=== PATIENT | female | born 1995 | race Caucasian/White ===

== ENCOUNTER 2017-09-16 15:09 | Inpatient (IN) | payer OTHER ==
[~2017-09-16] VITALS: Ht 177.8 cm; Wt 61.3 kg
[~2017-09-16 15:09] MED LIST: ATARAX,VISTARIL50 MG PO; FLEXERIL10 MG PO; KEFLEX500 MG PO; NAPROSYN500 MG PO; ZOLOFT25 MG PO
[2017-09-16 17:23] LABS: BASOPHIL (%) 0.1 % (0-1); EOSINOPHIL (%) 0.8 % (0-5); EOSINOPHIL COUNT 0.1 K/uL (0-0.3); HEMATOCRIT 42.1 % (36.0-46.0); HEMOGLOBIN 14.4 G/DL (11.9-15.5); IMMATURE GRANULOCYTE (%) 0.5 % (0.0-0.7); LYMPHOCYTE (%) 19.9 % (15-42); LYMPHOCYTE COUNT 1.7 K/uL (1.0-2.8); MCHC 34.2 G/DL (30.0-36.0); MCV 90.5 FL (83-99); MONOCYTE COUNT 0.7 K/uL (0-0.8); NEUTROPHIL (%) 70.7 % (45-76); NEUTROPHIL COUNT 5.9 K/uL (1.8-6.4); PLATELET COUNT 271 K/uL (156-360); RBC DIS.WIDTH-CV 12.3 % (11.8-14.6); RBC DIS.WIDTH-SD 40.5 % (39-53); RED BLOOD COUNT 4.65 M/uL (3.80-5.20); WHITE BLOOD COUNT 8.3 K/uL (4.1-10.2)
[2017-09-16 17:32] LABS: CHLORIDE 103 mEq/L (99-109); SODIUM 139 mEq/L (136-147)
[2017-09-16 17:34] LABS: GLUCOSE 86 mg/dL (70-99)
[2017-09-16 17:37] LABS: CREATININE 0.7 mg/dL (0.6-1.3); GFR ESTIMATE (CALCULATED) > 59 mL/min/; SERUM ETHYL ALCOHOL < 10 mg/dL
[2017-09-16 17:38] LABS: UREA NITROGEN (BUN) 8 mg/dL (9-23)
[2017-09-16 17:50] LABS: QUANTITATIVE HCG < 4.0 MIU/ML
[2017-09-16 18:04] LABS: AMPHETAMINE NEGATIVE (500 ng/mL); BARBITURATES NEGATIVE (200 ng/mL); BENZODIAZEPINES NEGATIVE (150 ng/mL); BUPRENORPHINE NEGATIVE (10 ng/mL); COCAINE NEGATIVE (150 ng/mL); METHADONE NEGATIVE (200 ng/mL); METHAMPHETAMINE NEGATIVE (500 ng/mL); OPIATES (MORPHINE) NEGATIVE (100 ng/mL); OXYCODONE NEGATIVE (100 ng/mL); PHENCYCLIDINE NEGATIVE (25 ng/mL); PROPOXYPHENE NEGATIVE (300 ng/mL); THC CANNABINOIDS PRESUMPTIVE POSITIVE (50 ng/mL); TRICYCLIC ANTIDEPRESSANTS NEGATIVE (300 ng/mL)
[2017-09-16] MEDS ORDERED: EFFEXOR XR150 MG PO (19:05)
[2017-09-16] MEDS ORDERED: PROAIR HFA8.5 GM IH (19:06)
[2017-09-16] MEDS ORDERED: KLONOPIN0.5 M1 PO (19:06)
[2017-09-16] MEDS ORDERED: ONE DAILY1 EAC3 PO (19:06)
[2017-09-16] MEDS ORDERED: MUCINEX FAST-M1 EAC8 PO (19:07)
[2017-09-16] MEDS ORDERED: [UNRECOGNIZED DRUG - OTHER] TP (19:07)
[2017-09-16 19:58] VITALS: BP 121/83
[2017-09-16 20:05] VITALS: BP 121/83
[2017-09-17 08:05] VITALS: BP 121/79
[2017-09-17 15:34] VITALS: BP 116/72
[2017-09-18 07:58] VITALS: BP 118/65
[2017-09-18 16:24] VITALS: BP 142/92
[2017-09-19 07:57] VITALS: BP 131/81
[2017-09-19 15:47] VITALS: BP 145/81
[2017-09-19 18:19] VITALS: BP 112/66
[2017-09-20 08:03] VITALS: BP 119/76
[2017-09-20] MEDS ORDERED: EFFEXOR XR75 MG PO (09:36)
[2017-09-20] MEDS ORDERED: KLONOPIN0.5 M1 PO (09:36)
[2017-09-20] MEDS ORDERED: BUSPAR10 MG PO (09:36)
== END 2017-09-20 13:17 | disposition home or self-care (01) | DRG 885 ==
LOC: EME 15:09 → 1WEST 18:48 → EDOF 18:48 → ENRESERV 19:00 → 1WEST 19:46
PROVIDERS: Emergency Medicine
DX: F33.2 Major depressive disorder, recurrent severe without psychotic features (principal); R45.851 Suicidal ideations; F41.9 Anxiety disorder, unspecified; F60.3 Borderline personality disorder; F12.10 Cannabis abuse, uncomplicated; F10.20 Alcohol dependence, uncomplicated; Z91.5 Personal history of self-harm
CPT/HCPCS: 80048; 84702; 84999; 85025; 90839; 94640; 94640 76; 97150 GO; 97165 GO; 99202; 99281; 99284; G0480; Q0177

== ENCOUNTER 2017-10-23 01:12 | Emergency (ER) | payer OTHER ==
[~2017-10-23] VITALS: Ht 177.8 cm; Wt 61.8 kg
[~2017-10-23 01:12] MED LIST changes: +BUSPAR10 MG PO; +EFFEXOR XR150 MG PO; +EFFEXOR XR75 MG PO; +KLONOPIN0.5 M1 PO; +MUCINEX FAST-M1 EAC8 PO; +ONE DAILY1 EAC3 PO; +PROAIR HFA8.5 GM IH; +[UNRECOGNIZED DRUG - OTHER] TP
[2017-10-23 02:14] LABS: APPEARANCE CLEAR ((CLEAR)); BILIRUBIN NEGATIVE; BLOOD NEGATIVE; COLOR STRAW ((YELLOW)); GLUCOSE (STRIP) NEGATIVE; KETONES NEGATIVE; LEUKOCYTES NEGATIVE; NITRITE NEGATIVE; PROTEIN (STRIP) NEGATIVE; SPECIFIC GRAVITY 1.002 (1.000-1.030); UROBILINOGEN 0.2 MG/DL (0.2-1.0)
[2017-10-23 02:16] LABS: HEMATOCRIT 35.8 % (36.0-46.0); HEMOGLOBIN 12.5 G/DL (11.9-15.5); MCH 31.6 PG (29.0-34.0); MCHC 34.9 G/DL (30.0-36.0); MCV 90.4 FL (83-99); PLATELET COUNT 205 K/uL (156-360); RBC DIS.WIDTH-CV 12.1 % (11.8-14.6); RBC DIS.WIDTH-SD 39.9 % (39-53); RED BLOOD COUNT 3.96 M/uL (3.80-5.20); WHITE BLOOD COUNT 4.7 K/uL (4.1-10.2)
[2017-10-23 02:23] LABS: AMPHETAMINE NEGATIVE (500 ng/mL); BARBITURATES NEGATIVE (200 ng/mL); BENZODIAZEPINES NEGATIVE (150 ng/mL); BUPRENORPHINE NEGATIVE (10 ng/mL); COCAINE NEGATIVE (150 ng/mL); METHADONE NEGATIVE (200 ng/mL); METHAMPHETAMINE NEGATIVE (500 ng/mL); OPIATES (MORPHINE) NEGATIVE (100 ng/mL); OXYCODONE NEGATIVE (100 ng/mL); PHENCYCLIDINE NEGATIVE (25 ng/mL); PROPOXYPHENE NEGATIVE (300 ng/mL); THC CANNABINOIDS PRESUMPTIVE POSITIVE (50 ng/mL); TRICYCLIC ANTIDEPRESSANTS NEGATIVE (300 ng/mL)
[2017-10-23 02:32] LABS: ALBUMIN 4.1 g/dL (3.2-4.8); CHLORIDE 113 mEq/L (99-109); POTASSIUM 3.2 mEq/L (3.7-5.4); SODIUM 146 mEq/L (136-147)
[2017-10-23 02:34] LABS: GLUCOSE 86 mg/dL (70-99); TOTAL PROTEIN 6.4 g/dL (6.4-8.3)
[2017-10-23 02:36] LABS: TOTAL BILIRUBIN 0.3 mg/dL (0.0-1.0)
[2017-10-23 02:37] LABS: SERUM ETHYL ALCOHOL 32 mg/dL
[2017-10-23 02:38] LABS: CREATININE 0.7 mg/dL (0.6-1.3); GFR ESTIMATE (CALCULATED) > 59 mL/min/
[2017-10-23 02:39] LABS: ALKALINE PHOSPHATASE 57 IU/L (3-129); AST (GOT) 16 IU/L (2-34)
[2017-10-23 02:40] LABS: UREA NITROGEN (BUN) 6 mg/dL (9-23)
[2017-10-23 02:41] LABS: SALICYLATE < 5.0 MG/DL (15-30)
[2017-10-23 02:42] LABS: ACETAMINOPHEN (TYLENOL) < 10 mcg/mL (10-30); ALT (GPT) 10 IU/L (3-49)
[2017-10-23 03:21] LABS: QUANTITATIVE HCG < 4.0 MIU/ML
[2017-10-23 20:58] VITALS: BP 106/68
== END 2017-10-23 20:59 ==
LOC: EME → EDBD 01:12 → EME 20:59
PROVIDERS: Emergency Medicine
DX: T42.4X1A Poisoning by benzodiazepines, accidental (unintentional), initial encounter (principal); T43.591A Poisoning by other antipsychotics and neuroleptics, accidental (unintentional), initial encounter; F33.2 Major depressive disorder, recurrent severe without psychotic features; T43.291A Poisoning by other antidepressants, accidental (unintentional), initial encounter; R45.851 Suicidal ideations; F60.3 Borderline personality disorder; F10.20 Alcohol dependence, uncomplicated; F12.90 Cannabis use, unspecified, uncomplicated; F41.9 Anxiety disorder, unspecified; J45.909 Unspecified asthma, uncomplicated; Z91.5 Personal history of self-harm; Z98.890 Other specified postprocedural states; Z91.048 Other nonmedicinal substance allergy status; Y90.1 Blood alcohol level of 20-39 mg/100 ml
CPT/HCPCS: 71045; 80053; 81003; 84702; 84999; 85027; 90837; 93005; 99281; 99285; G0480; J7030

== ENCOUNTER 2017-11-22 21:03 | Emergency (ER) | payer OTHER ==
[~2017-11-22] VITALS: Ht 177.8 cm; Wt 63.6 kg
[2017-11-22 21:52] LABS: HEMATOCRIT 38.2 % (36.0-46.0); HEMOGLOBIN 13.4 G/DL (11.9-15.5); MCH 31.4 PG (29.0-34.0); MCHC 35.1 G/DL (30.0-36.0); MCV 89.5 FL (83-99); PLATELET COUNT 232 K/uL (156-360); RBC DIS.WIDTH-CV 11.9 % (11.8-14.6); RBC DIS.WIDTH-SD 38.7 % (39-53); RED BLOOD COUNT 4.27 M/uL (3.80-5.20); WHITE BLOOD COUNT 7.9 K/uL (4.1-10.2)
[2017-11-22 21:58] LABS: AMPHETAMINE NEGATIVE (500 ng/mL); APPEARANCE SL.HAZY ((CLEAR)); BARBITURATES NEGATIVE (200 ng/mL); BENZODIAZEPINES NEGATIVE (150 ng/mL); BILIRUBIN NEGATIVE; BLOOD NEGATIVE; BUPRENORPHINE NEGATIVE (10 ng/mL); COCAINE NEGATIVE (150 ng/mL); COLOR YELLOW ((YELLOW)); GLUCOSE (STRIP) NEGATIVE; KETONES NEGATIVE; LEUKOCYTES NEGATIVE; METHADONE NEGATIVE (200 ng/mL); METHAMPHETAMINE NEGATIVE (500 ng/mL); NITRITE NEGATIVE; OPIATES (MORPHINE) NEGATIVE (100 ng/mL); OXYCODONE NEGATIVE (100 ng/mL); PHENCYCLIDINE NEGATIVE (25 ng/mL); PROPOXYPHENE NEGATIVE (300 ng/mL); PROTEIN (STRIP) NEGATIVE; SPECIFIC GRAVITY 1.009 (1.000-1.030); THC CANNABINOIDS PRESUMPTIVE POSITIVE (50 ng/mL); TRICYCLIC ANTIDEPRESSANTS NEGATIVE (300 ng/mL); UROBILINOGEN 0.2 MG/DL (0.2-1.0)
[2017-11-22 22:08] LABS: BACTERIA RARE /HPF; EPITHELIAL CELLS 1+ /HPF; MUCUS TRACE /LPF; RED BLOOD CELLS NONE SEEN /HPF (0-5); WHITE BLOOD CELLS 0-5 /HPF (0-5)
[2017-11-22 22:09] LABS: ALBUMIN 4.2 g/dL (3.2-4.8)
[2017-11-22 22:10] LABS: CHLORIDE 106 mEq/L (99-109); POTASSIUM 3.8 mEq/L (3.7-5.4); SODIUM 141 mEq/L (136-147)
[2017-11-22 22:12] LABS: GLUCOSE 87 mg/dL (70-99); TOTAL PROTEIN 6.7 g/dL (6.4-8.3)
[2017-11-22 22:14] LABS: TOTAL BILIRUBIN 0.4 mg/dL (0.0-1.0)
[2017-11-22 22:15] LABS: ALKALINE PHOSPHATASE 54 IU/L (3-129); SERUM ETHYL ALCOHOL < 10 mg/dL
[2017-11-22 22:16] LABS: CREATININE 0.8 mg/dL (0.6-1.3); GFR ESTIMATE (CALCULATED) > 59 mL/min/
[2017-11-22 22:17] LABS: AST (GOT) 19 IU/L (2-34); UREA NITROGEN (BUN) 12 mg/dL (9-23)
[2017-11-22 22:19] LABS: ALT (GPT) 13 IU/L (3-49)
[2017-11-22 22:26] LABS: QUANTITATIVE HCG < 4.0 MIU/ML
[2017-11-23 00:28] VITALS: BP 111/66
== END 2017-11-23 00:30 | disposition home or self-care (01) ==
LOC: EME 21:03
PROVIDERS: Emergency Medicine
DX: F41.9 Anxiety disorder, unspecified (principal); F33.9 Major depressive disorder, recurrent, unspecified; J45.909 Unspecified asthma, uncomplicated
CPT/HCPCS: 80053; 81003; 84702; 84999; 85027; 90839; 99281; 99285; G0480